=== PATIENT | male | born 2000 | race Caucasian/White ===

== ENCOUNTER 2019-05-21 20:25 | Emergency (ER) | payer MEDICAID ==
[~2019-05-21] VITALS: Ht 182.9 cm; Wt 82.3 kg
[2019-05-21] MEDS ORDERED: ketorolac trometh. 30mg/ml inj. IM ONE (22:45)
[2019-05-21] MEDS ORDERED: diphenhydrAMINE 50 mg/ml inj IM ONE (22:45)
[2019-05-21] MEDS ORDERED: metoclopramide 5 mg/ml inj IM ONE (22:45)
[2019-05-21 23:12] VITALS: BP 108/53
== END 2019-05-21 23:00 | disposition home or self-care (01) ==
LOC: ER 20:27
DX: R51 Headache (principal)
CPT/HCPCS: 96372; 99283; J1200; J1885; J2765

== ENCOUNTER 2021-01-06 13:27 | Emergency (ER) | payer MEDICAID ==
[~2021-01-06] VITALS: Ht 180.3 cm; Wt 116.3 kg
[~2021-01-06 13:27] MED LIST: LIDOcaine 1% W/epiNEPHrine 1:100,000 20ml vial ONE
[2021-01-06 13:46] VITALS: BP 126/71
[2021-01-06] MEDS ORDERED: SULF1TAB45 PO (15:37)
== END 2021-01-06 15:49 | disposition home or self-care (01) ==
LOC: ER 13:27
DX: L02.412 Cutaneous abscess of left axilla (principal); Z79.899 Other long term (current) drug therapy
CPT/HCPCS: 10060; 99283

== ENCOUNTER 2025-03-04 21:30 | Emergency (ER) | payer MEDICAID ==
[~2025-03-04] VITALS: Ht 175.3 cm; Wt 115.7 kg
[2025-03-04 21:33] VITALS: BP 144/94; PULSE 98; O2SAT 96
[2025-03-04] MEDS: amox tr/potassium clavulanate 875/125mg TAB PO STA (22:30)
[2025-03-04 22:32] VITALS: RESP 20
[2025-03-04] MEDS: ketorolac trometh 30MG/ML vial 30 MG/ML VIAL IM STA (22:32)
--- NOTE | 2025-03-04 22:50 | Physician Documentation ---
History of Present Illness ~ Chief Complaint: Jaw Pain Stated Complaint: FACIAL PAIN Time Seen by MD: 22:11 HPI Patient comes today complaining of pain on the right side of his face/jaw with swelling. Patient states these symptoms developed slowly over the last couple of days. Patient denies any fevers or chills. He has no other concern or complaint at this time. Medication Reconciliation Allergies: Coded Allergies: No Known Allergies (Unverified , 05/21/19) Past Medical History Past Medical History: No Pertinent History Past Surgical History: no surgical history Alcohol Use: None Drug Use: none Lives In: Home Review of Systems Constitutional: Denies: chills, fever, weakness Eyes: Denies: pain, blurred vision ENT: Denies: ear pain, nose pain, throat pain, mouth pain Respiratory: Denies: cough, shortness of breath Cardiovascular: Denies: chest pain, palpitations Gastrointestinal: Denies: abdominal pain, nausea, vomiting Genitourinary: Denies: burning, dysuria Male Genitalia: Denies: penile discharge, testicular pain Neurological: Denies: headache, dizziness Musculoskeletal: Denies: pain, swelling Integumentary: Denies: rash, lesions Allergic/Immunologic: Denies: hives, itching Hematologic/Lymphatic: Denies: no symptoms reported Psychiatric: Denies: depression, anxiety Physical Exam Vital Signs: Temperature: 98.0, Source: Temporal, Heart Rate: 98, Respiratory Rate: 20, BP: 144/94, Pulse Oximetry: 96, Weight: 115.700 Oxygen Flow Rate: 0 Physical Exam General: Awake and Alert, no acute distress. HEENT: Patient on exam has swelling of the right side of his face in the area of the parotid gland with significant tenderness to palpation in the area as well as some swelling and irritation of the duct in the inside of his right cheek. I do not appreciate any purulent drainage. Conjunctiva pink, Sclera clear, Mucus Membranes moist. Neck: Supple without masses and tenderness. Resp: Unlabored. Lungs clear to auscultation bilaterally. Heart: Regular Rate and rhythm, normal S1 and S2 without murmur, rub or gallop. Extremities: No cyanosis,clubbing or edema. Skin: Warm and Dry. Progress Results/Orders Results/Orders Completed Orders - CLAUDIA BARRERA Ketorolac Trometh 30mg/Ml Vial (Toradol (03/04/25 22:11) Amox Tr/Potassium Clavulanate (Augmentin (03/04/25 22:11) Medications Received in ER Medications (Trade) Dose Ordered Sig/Emelia Route PRN Reason Start Time Stop Time Status Last Admin Dose Admin (Toradol inj. 30mg/ml) 30 mg ONCE STAT IM 03/04/25 22:11 03/04/25 22:16 DC 03/04/25 22:32 30 MG (Augmentin 875-125mg tablet) 1 tab ONCE STAT PO 03/04/25 22:11 03/04/25 22:16 DC 03/04/25 22:30 1 TAB Vital Signs 03/04/25 03/04/25 21:33 22:32 Temp 98.0 Pulse 98 Resp 20 20 B/P (MAP) 144/94 Pulse Ox 96 O2 Flow Rate 0 Medical Decision Making Findings Patient comes today complaining of pain on the right side of his face/jaw with swelling. Patient states these symptoms developed slowly over the last couple of days. Patient denies any fevers or chills. He has no other concern or complaint at this time. Patient was given a dose of Toradol 30 mg IM and Augmentin 875/125 mg one tab by mouth in the ED tonight. Prescription of Augmentin and ibuprofen sent to patient's pharmacy along with instructions to stay very well hydrated and massage the right parotid gland and eat sour foods or vinegar foods to help pass the stone. Patient voiced understanding. He will follow up with primary care in 2-5 days if no better as needed sooner. Return to ED with any worsening, concerning or changing symptoms. Departure Disposition: 01 HOME / SELF CARE / HOMELESS Impression: Primary Impression: Sialolithiasis Condition: Stable Discharge Instructions: Salivary Stone Additional Instructions: Patient was given a dose of Toradol 30 mg IM and Augmentin 875/125 mg one tab by mouth in the ED tonight. Prescription of Augmentin and ibuprofen sent to patient's pharmacy along with instructions to stay very well hydrated and massage the right parotid gland and eat sour foods or vinegar foods to help pass the stone. Patient voiced understanding. He will follow up with primary care in 2-5 days if no better as needed sooner. Return to ED with any worsening, concerning or changing symptoms. Referrals: NO PRIMARY CARE PROVIDER (PCP) Prescriptions Amox Tr/Potassium Clavulanate (Augmentin 875-125 Tablet) 1 Each Tablet 1 TAB PO Q12H for 10 Days, #20 TAB Prov: CLAUDIA BARRERA 03/04/25 Ibuprofen (Ibuprofen) 800 Mg Tablet 1 TAB PO Q8H for pain for 10 Days, #30 TAB 0 Refills Prov: CLAUDIA BARRERA 03/04/25 Signature Scribe Signature: No scribe Attestation: No scribe CLAUDIA BARRERA PAC Mar 04, 2025 22:50
[2025-03-04] MEDS ORDERED: IBUP-1986 PO (22:51)
[2025-03-04] MEDS ORDERED: AMOX-117 PO (22:51)
[2025-03-04 22:55] VITALS: TEMP 98
== END 2025-03-04 22:55 | disposition home or self-care (01) ==
LOC: ER 21:30
DX: K11.5 Sialolithiasis (principal)
CPT/HCPCS: 96372; 99283; J1885